=== PATIENT | female | born 1995 | race Caucasian/White ===

== ENCOUNTER 2016-03-15 18:21 | Emergency (ER) | payer OTHER ==
[~2016-03-15] VITALS: Ht 170.2 cm; Wt 61.4 kg
[2016-03-15 18:23] VITALS: TEMP 97.3
[2016-03-15] MEDS ORDERED: PROZAC60 MG (18:26)
[2016-03-15] MEDS ORDERED: CONCERTA36 MG PO (18:26)
[2016-03-15] MEDS ORDERED: TRINESSA 281 TAB (18:27)
[2016-03-15 19:14] VITALS: BP 110/76; PULSE 80
== END 2016-03-15 19:14 | disposition home or self-care (01) ==
LOC: COL.ER 18:21
DX: S90.31XA Contusion of right foot, initial encounter (principal); V09.29XA Pedestrian injured in traffic accident involving other motor vehicles, initial encounter; Y92.481 Parking lot as the place of occurrence of the external cause

== ENCOUNTER → 2017-07-05 | Outpatient (CLI) | payer OTHER ==
[~2017-07-05] MED LIST: CONCERTA36 MG PO; PROZAC60 MG; TRINESSA 281 TAB
== END ==
LOC: COL.PUL 10:12
DX: R06.02 Shortness of breath (principal); R05 Cough; R06.2 Wheezing